=== PATIENT | male | born 1980 | race Caucasian/White ===

== ENCOUNTER 2016-11-23 11:38 | Emergency (ER) | payer OTHER ==
[~2016-11-23] VITALS: Ht 190.5 cm; Wt 101.0 kg
[2016-11-23 11:40] VITALS: BP 135/89; PULSE 60; RESP 18; TEMP 97.8; O2SAT 98; Ht 190.5 cm; Wt 101.0 kg
--- NOTE | 2016-11-23 12:13 | ERPDOC ---
Departure Disposition Decision Date: Nov 23, 2016 Disposition Decision Time: 12:16 Disposition: 01 DISCHARGED HOME, SELF-CARE Impression Impression Impression: Primary Impression: Hamstring strain Encounter type: initial encounter Laterality: right Qualified Codes: S76.311A - Strain of muscle, fascia and tendon of the posterior muscle group at thigh level, right thigh, initial encounter Severity: Moderate Condition: Stable Seen By: Mid-level only Patient Instructions: Hamstring Injury (ED) Problems/Meds/Labs Reviewed?: Yes Medications reviewed and manag: Yes Additional Instructions: I do want you to follow up with your orthopedist either tomorrow or Thursday for reevaluation of the leg. We do not have capability to get an MRI or US of the muscle here in [place] today. I do want you to ice and rest the leg. May use the [place] as needed for pain. If you have any other concerns then return to [place]. Follow up care ordered?: Yes Mental Status: Alert, Oriented Scripts Hydrocodone/Acetaminophen ([place] 5-325 Tablet) 5-325 Tablet 1 TAB PO Q6H Y for PAIN, #12 TAB 0 Refills Prov: DENEEN GUZMÁN Margarita JIMENEZ 11/23/16 HPI - Lower Extremity General Chief Complaint: Lower Extremity Pain Stated Complaint: R LEG PAIN Time Seen by Provider: 12:02 Source: patient Exam Limitations: no limitations HPI - Lower Extremity Initial Comments He is up in [place] visiting family. Is orginally from [facility]. He states that on March [id number] he tore his hamstring loose and had to have it surgically reattached in March. He was evaluated and treated by an orthopedist in [place]. He was walking up the stairs here in [place] 2 days ago and felt like something "tweaked" in the right posterior lateral thigh. Since then he has had continued pain in this region. Is scheduled to fly home to [place] tomorrow. Occurred At: home Onset/Timing: Rapid Duration: other (2 days ago) Severity: moderate Pain/Injury Location: right thigh Method of Injury: unknown Hx of Similar Symptoms: No Allergies: Coded Allergies: No Known Allergies (Unverified , 11/23/16) Past History Patient Surgical History Hamstring repair, Vasectomy Surgical History Reproductive/: other (Vasectomy) Joint: other (Hamstring repair) Family History Family History: Negative Social History Smoking Status: Never smoker Substance Use Type: does not use Alcohol Intake: none Review of Systems Constitutional Constitutional: DENIES: chills, dizziness, fatigue, fever, weakness Musculoskeletal General: pain (right thigh), DENIES: joint pain, joint swelling, tenderness Integumentary Skin: DENIES: color change, lesion, rash Neurological General: DENIES: headache, numbness, tingling, weakness Physical Exam General General Nourishment: well nourished, well developed, appears stated age, no acute distress, adult General Body Habitus: well groomed Vitals and Pain First Documented Vital Signs Date Time Temp Pulse Resp B/P Pulse Ox O2 Delivery O2 Flow Rate FiO2 11/23/16 11:40 97.8 60 18 135/89 98 Room Air Weight: Kilograms: 101.000 Height (feet): 6 Height (inches): 3.00 Triage Pain Scale: RN VS reviewed by Provider: Yes Normal Exams: Lymphatic: No lymphadenopathy, or lymphedema noted Integumentary: No rashes, hives, or bruising noted Neurologic: Patient is alert, and oriented Psychiatric: Patient exhibits, appropriate attention, emotion and affect Musculoskeletal (brief) Musculoskeletal Brief: FOUND: tenderness (Mild TTP in the right lateral thigh, there is no lump or bump noted. He is able to move his toes and ankle without any pain or diffulty. He does extend his right knee out and stops just short of full extension due to pain. Is able to fully flex the right knee. Sensation is intact to the right foot with pedal pulse of 2+.) Differential Diagnoses Considering: Contusion, Ligament Tear ACL, Ligament Tear PCL, Meniscal Injury, Knee, Sprain, Strain, Hamstring Tear Progress Progress Progress I am going to go ahead and have him take some [place] for the pain. I do want him to go ahead and set up an appointment to see his orthopedist tomorrow or Thursday once he gets back on [place]. We do not have access to MRI to evaluate the muscle nor do we have US capability for muscle US. There is not deficit in gross motor or sensation so will have him follow up with his orthopedist. DENEEN GUZMÁN APRN Nov 23, 2016 12:13
[2016-11-23] MEDS ORDERED: HYDR-4246 PO (12:17)
[2016-11-23] MEDS ORDERED: CELE100C PO (12:23)
[2016-11-23] MEDS ORDERED: SUMA25TA PO (12:23)
[2016-11-23] MEDS ORDERED: ASPI-557 PO (12:23)
--- NOTE | 2016-11-23 12:27 | NUR ---
DISMISSAL INSTRUCTIONS & RX REVIEWED WITH PT . HE VERBALIZES UNDERSTANDING. DISCHARGED AMB
== END 2016-11-23 12:27 | disposition home or self-care (01) ==
LOC: ED 11:38
DX: S76.311A Strain of muscle, fascia and tendon of the posterior muscle group at thigh level, right thigh, initial encounter (principal); X58.XXXA Exposure to other specified factors, initial encounter; Y93.01 Activity, walking, marching and hiking; Y92.008 Other place in unspecified non-institutional (private) residence as the place of occurrence of the external cause; Y99.8 Other external cause status